=== PATIENT | female | born 1985 | race Caucasian/White ===

== ENCOUNTER 2023-10-11 19:33 | Emergency (ER) | payer BC, OTHER | END 2023-10-11 21:03 | disposition home or self-care (01) | LOC: ERS 19:33 | DX: N61.0 Mastitis without abscess (principal) | CPT/HCPCS: 99283 ==

== ENCOUNTER 2023-11-22 17:19 | Emergency (ER) | payer BC, SELFPAY ==
[2023-11-22] MEDS ORDERED: Ketorolac Tromethamine 30 MG (1 mL) VIAL ONE (17:38)
[2023-11-22] MEDS ORDERED: Cyclobenzaprine 10 MG TAB ONE (17:38)
[2023-11-22 18:11] LABS: Bacteria/HPF None Seen HPF (None Seen); Bilirubin Negative (Negative); Blood, Urine Negative (Negative); CAUTI Indications for Culture Dysuria,urgency,freq; Clarity Clear (Clear); Glucose, Urine (Dipstick) Normal (Negative); Ketone, Urine Negative (Negative); Leukocyte Negative Leu/uL (Negative); Nitrite Negative (Negative); Protein, Urine (Dipstick) Negative (Neg-Trace); RBC/HPF 0-3 HPF (0-3); Specific Gravity, Urine 1.024 (1.002-1.036); Squamous Epithelial 0-3 HPF (0-3); Urobilinogen Normal mg/dL (Less than 2); WBC/HPF 0-3 HPF (0-3); pH, Urine 5.5 (5.0-9.0)
[2023-11-22 18:12] LABS: Pregnancy Test - Urine (BHCG) Negative (Negative); Pregu Control Background? CLEAR/WHITE (CLR/WHITE); Pregu Control Bar Appear? YES (CONTROL BAR); Specific Gravity 1.024 (1.002-1.036)
[2023-11-22 18:13] LABS: Urine Culture Reflex No No
== END 2023-11-22 18:27 | disposition home or self-care (01) ==
LOC: ERS 17:19
DX: M54.6 Pain in thoracic spine (principal)
CPT/HCPCS: 71045; 81001; 81025; 96372; J1885